=== PATIENT | male | born 1955 | race Caucasian/White ===

== ENCOUNTER 2023-03-15 07:05 | Emergency (ER) | payer MEDICARE ==
[2023-03-15] MEDS ORDERED: Propofol 200 MG/20 ML SDV ONE (07:35)
[2023-03-15] MEDS: Metoprolol Tartrate 5 MG/5 ML SDV IVPUSH ONE (07:45)
[2023-03-15 07:46] LABS: BASOPHILS ABSOLUTE AUTO 0.06 K/uL (0.00-0.10); BASOPHILS PERCENT AUTO 0.9 % (0.1-1.3); EOSINOPHILS ABSOLUTE AUTO 0.29 K/uL (0.00-0.40); EOSINOPHILS PERCENT AUTO 4.1 % (0.0-5.4); HEMATOCRIT 45.3 % (38.4-49.7); HEMOGLOBIN 15.7 g/dL (12.9-16.9); IMMATURE GRAN ABSOLUTE AUTO 0.02 K/uL (0.00-0.23); IMMATURE GRAN PERCENT AUTO 0.3 % (0.0-0.7); LYMPHOCYTES PERCENT AUTO 24.2 % (11.4-47.7); MEAN CORPUSCULAR HEMOGLOBIN 30.7 pg (31.6-35.5); MEAN CORPUSCULAR HGB CONC 34.7 g/dL (31.6-35.5); MEAN CORPUSCULAR VOLUME 88.6 fL (81.4-99.0); MONOCYTES ABSOLUTE AUTO 0.64 K/uL (0.20-0.90); MONOCYTES PERCENT AUTO 9.1 % (3.3-12.6); NEUTROPHILS ABSOLUTE AUTO 4.31 K/uL (1.0-7.6); NEUTROPHILS PERCENT AUTO 61.4 % (40.0-78.1); PLATELET COUNT,PLT 239 K/uL (130-375); RED BLOOD CELL COUNT 5.11 M/uL (4.14-5.76)
[2023-03-15 08:03] LABS: CALCIUM 8.6 mg/dL (8.5-10.1); CREATININE 0.9 mg/dL (0.8-1.3); EST CRCL DRUG DOSING (CG) 83.67 mL/min; POTASSIUM,K 4.4 mmol/L (3.6-5.2)
[2023-03-15 08:07] LABS: ANION GAP 11.4 mmol/L (5.0-14.0)
== END 2023-03-15 08:56 | disposition home or self-care (01) ==
LOC: JP.ED 07:05
DX: I48.20 Chronic atrial fibrillation, unspecified (principal); Z79.899 Other long term (current) drug therapy
CPT/HCPCS: 36415; 80048; 85025; 93005; 96374; 99285; J2704; J3490

== ENCOUNTER 2024-02-29 18:27 | Emergency (ER) | payer MEDICARE ==
[2024-02-29 19:34] LABS: BASOPHILS ABSOLUTE AUTO 0.03 K/uL (0.00-0.10); BASOPHILS PERCENT AUTO 0.3 % (0.1-1.3); EOSINOPHILS ABSOLUTE AUTO 0.06 K/uL (0.00-0.40); EOSINOPHILS PERCENT AUTO 0.6 % (0.0-5.4); HEMATOCRIT 33.4 % (38.4-49.7); HEMOGLOBIN 11.8 g/dL (12.9-16.9); IMMATURE GRAN ABSOLUTE AUTO 0.03 K/uL (0.00-0.23); IMMATURE GRAN PERCENT AUTO 0.3 % (0.0-0.7); LYMPHOCYTES ABSOLUTE AUTO 1.15 K/uL (0.8-3.3); LYMPHOCYTES PERCENT AUTO 12.3 % (11.4-47.7); MEAN CORPUSCULAR HEMOGLOBIN 31.6 pg (31.6-35.5); MEAN CORPUSCULAR HGB CONC 35.3 g/dL (31.6-35.5); MEAN CORPUSCULAR VOLUME 89.3 fL (81.4-99.0); MONOCYTES ABSOLUTE AUTO 0.97 K/uL (0.20-0.90); MONOCYTES PERCENT AUTO 10.4 % (3.3-12.6); NEUTROPHILS ABSOLUTE AUTO 7.09 K/uL (1.0-7.6); NEUTROPHILS PERCENT AUTO 76.1 % (40.0-78.1); PLATELET COUNT,PLT 207 K/uL (130-375); RED BLOOD CELL COUNT 3.74 M/uL (4.14-5.76); WHITE BLOOD CELL COUNT,WBC 9.3 K/uL (3.2-11.0)
[2024-02-29 19:46] LABS: CALCIUM 8.7 mg/dL (8.5-10.1); CREATININE 1.2 mg/dL (0.8-1.3); EST CRCL DRUG DOSING (CG) 42.98 mL/min; POTASSIUM,K 4.2 mmol/L (3.6-5.2)
[2024-02-29 19:47] LABS: ANION GAP 13.2 mmol/L (5.0-14.0)
== END 2024-02-29 20:20 | disposition home or self-care (01) ==
LOC: JP.ED 18:27
DX: N50.89 Other specified disorders of the male genital organs (principal); I48.91 Unspecified atrial fibrillation; I10 Essential (primary) hypertension; J45.909 Unspecified asthma, uncomplicated; Z90.89 Acquired absence of other organs; Z90.79 Acquired absence of other genital organ(s); Z79.51 Long term (current) use of inhaled steroids; Z79.01 Long term (current) use of anticoagulants; Z79.899 Other long term (current) drug therapy
CPT/HCPCS: 36415; 80048; 85025; 99284

== ENCOUNTER 2025-02-06 07:03 | Day surgery (SDC) | payer MEDICARE, BC ==
[2025-02-06] MEDS ORDERED: fentaNYL 250 MCG/5 ML SDV ONE (07:30)
[2025-02-06] MEDS ORDERED: Ondansetron 4 MG/2 ML SDV ONE (07:31)
[2025-02-06] MEDS ORDERED: Dexamethasone 4 MG/ML SDV ONE (07:31)
[2025-02-06] MEDS ORDERED: Propofol 200 MG/20 ML SDV ONE (07:31)
[2025-02-06] MEDS ORDERED: Succinylcholine 200 MG/10 ML MDV ONE (07:31)
[2025-02-06] MEDS ORDERED: Glycopyrrolate 0.2 MG/ML 5 ML MDV ONE (07:31)
[2025-02-06 07:59] LABS: PLATELET COUNT,PLT 194.0 K/uL (130-375); RED BLOOD CELL COUNT 4.38 M/uL (4.14-5.76); WHITE BLOOD CELL COUNT,WBC 5.8 K/uL (3.2-11.0)
[2025-02-06] MEDS: metroNIDAZOLE/Normal Saline 500 MG in Premix Bag 1 BAG IV ONE (08:16)
[2025-02-06 08:20] LABS: A/G RATIO 1.3 (1.2-2.2); ALANINE AMINOTRANSFERASE,ALT 20 U/L (12-78); ASPARTATE AMNIOTRANSFERASE,AST 14 U/L (15-37); BILIRUBIN TOTAL 0.5 mg/dL (0.2-1.0); BLOOD UREA NITROGEN,BUN 13 mg/dL (7-18); CARBON DIOXIDE,CO2 27 mmol/L (21-32); CHLORIDE,CL 105 mmol/L (100-108); CREATININE 0.9 mg/dL (0.8-1.3); EST CRCL DRUG DOSING (CG) 81.34 mL/min; ESTIMATED GFR 92 mL/min (>60); GLUCOSE RANDOM 93 mg/dL (74-106); POTASSIUM,K 4.0 mmol/L (3.6-5.2); PROTEIN TOTAL,TP 6.4 g/dL (6.4-8.2); SODIUM,NA 140 mmol/L (140-148)
[2025-02-06] MEDS ORDERED: Ketorolac 30 MG/ML SDV ONE (08:53)
[2025-02-06] MEDS ORDERED: hydrALAZINE 20 MG/ML SDV ONE (09:10)
[2025-02-06] MEDS ORDERED: Lactated Ringers 1,000 ML ONE (09:51)
[2025-02-06] MEDS ORDERED: fentaNYL 100 MCG/2 ML SDV ONE (09:52)
[2025-02-06] MEDS ORDERED: Naloxone 0.4 MG/ML SDV IVPUSH PRN (10:54)
[2025-02-06] MEDS: Lactated Ringers 1,000 ML IV SCH (11:08)
[2025-02-06] MEDS: Ondansetron 4 MG/2 ML SDV IVPUSH ONE (11:29)
[2025-02-06] MEDS: Scopalamine 1mg/3day Transdermal Patch TOP ONE (12:56)
[2025-02-06] MEDS: Acetaminophen/HYDROcodone 325-5 MG Tab PO PRN (13:15)
== END 2025-02-06 13:55 | disposition home or self-care (01) ==
LOC: JP.SDS 07:03
PROVIDERS: ATTEND Surgery
DX: K40.30 Unilateral inguinal hernia, with obstruction, without gangrene, not specified as recurrent (principal); D17.6 Benign lipomatous neoplasm of spermatic cord; I10 Essential (primary) hypertension; I48.0 Paroxysmal atrial fibrillation; Z79.899 Other long term (current) drug therapy
CPT/HCPCS: 00840; 36415; 49650; 80053; 85027; A9270; C1781; J0169; J0330; J0360; J0665; J0690; J1100; J2405; J2704; J2710; J2765; J2795; J3010; J7120; J1171; J1596; J1836; J1885; J3490